=== PATIENT | male | born 1965 | race Caucasian/White ===

== ENCOUNTER → 2018-09-15 | Outpatient (CLI) | payer BC ==
--- NOTE | 2018-09-15 17:23 | US ---
EXAMINATION TYPE: US venous doppler duplex LE RT DATE OF EXAM: 09/15/2018 3:50 PM COMPARISON: NONE CLINICAL HISTORY: M79.89 Swelling In Limb. SIDE PERFORMED: Right TECHNIQUE: The lower extremity deep venous system is examined utilizing real time linear array sonog juan with graded compression, doppler sonography and color-flow sonography. VESSELS IMAGED: External Iliac Vein (EIV) Common Femoral Vein Deep Femoral Vein Greater Saphenous Vein * Femoral Vein Popliteal Vein Small Saphenous Vein * Proximal Calf Veins (* superficial vessels) FINDINGS: Grayscale, color doppler, spectral doppler imaging performed of the deep veins of the lower extremities. There is normal flow, compressibility, vascular waveforms. IMPRESSION: NEGATIVE FOR DVT, RIGHT LOWER EXTREMITY.
== END | disposition home or self-care (01) ==
LOC: RADUSWWP 15:18
PROVIDERS: ATTEND Internal Medicine
DX: M79.89 Other specified soft tissue disorders (principal)

== ENCOUNTER → 2022-04-26 | Outpatient (CLI) | payer BC ==
--- NOTE | 2022-04-27 07:04 | MR ---
EXAMINATION TYPE: MR iac wo/w con DATE OF EXAM: 04/26/2022 COMPARISON: NONE HISTORY: Right side hearing loss. TECHNIQUE: Multiplanar, multisequence images of the brain and brainstem is performed without and with IV contras t, utilizing 13 mL intravenous Gadavist . Acoustic nerve disorder protocol. FINDINGS: Diffusion weighted images demonstrate no evidence of a recent infarct or other diffusion ab normality. Mild ventricular and sulcal prominence. Single tiny 3 to 4 mm T2 hyperintense lesion right frontal lobe axial image 22. Midline structures demonstrate normal morphology. The craniocervical junction appears within normal limits. There is dominant left vertebral artery filling the basilar artery. Moderate mucosal thickeni ng involving ethmoid sinuses bilaterally. Globes are intact. No suspicious fluid signal in the mastoid air cells bilaterally. The vestibulocochlear complexes are symmetric and felt within normal limits. No suspicious enhancing cerebellopontine angle mass is ident ified. IMPRESSION: 1. No suspicious findings seen to account for patient's symptoms of right-sided hearing loss. 2. Mild diffuse cerebral atrophy with bilateral chronic ethmoid sinus disease noted.
== END | disposition home or self-care (01) ==
LOC: RADMRIMAIN 14:19
PROVIDERS: ATTEND Otolaryngology
DX: G31.9 Degenerative disease of nervous system, unspecified (principal)
CPT/HCPCS: 70553; A9585

== ENCOUNTER → 2024-11-05 | Day surgery (SDC) | payer BC ==
[2024-11-03 09:28] VITALS: BMI 33.7
[~2024-11-05] MED LIST: PROPOFOL 10 MG/ML 20 ML VIAL IV ONE
[2024-11-05] MEDS: IV FLUID CONTINUATION 1,000 ML IV ONE (12:05)
[2024-11-05 12:06] VITALS: TEMP 97
[2024-11-05] MEDS: LACTATED RINGERS 1,000 ML IV SCH (12:11)
--- NOTE | 2024-11-05 13:07 | P.PCN ---
Date of Procedure: 11/05/24 Procedure(s) Performed: BRIEF HISTORY: Patient is a 58-year-old pleasant white male scheduled for an elective colonoscopy as a part of painful colon cancer/positive Cologuard. PROCEDURE PERFORMED: Colonoscopy with snare polypectomy. PREOPERATIVE DIAGNOSIS: Screening for colon cancer/positive Cologuard. IV sedation per Anesthesia. PROCEDURE: After informed consent was obtained, the patient, was brought into the endoscopy unit. IV sedation was administered by Anesthesia under continuous monitoring. Digital rectal examination was normal. Initially the Olympus CF-160 flexible video colonoscope was then inserted in the rectum, gradually advanced into the cecum without any difficulty. Careful examination was performed as the scope was gradually being withdrawn. Ileocecal valve and the appendiceal orifice were visualized and appeared normal. Prep was excellent. Mucosa of the cecum, ascending colon, appeared normal. The transverse colon there was a 5 mm polyp that was removed by cold snare polypectomy. Rest of the transverse colon, descending colon, sigmoid colon, and rectum appeared normal. Scattered sigmoid diverticulosis. Retroflexion was performed in the rectum and no lesions were seen. The patient tolerated the procedure well. IMPRESSION: 5 mm transverse colon polyp status post cold snare polypectomy Scattered sigmoid diverticulosis RECOMMENDATIONS: Findings of this examination were discussed with the patient as well as his family. He was advised to follow-up with the biopsy results. If the biopsy reveals adenoma he can colonoscopy in 5 years..
[2024-11-05 13:34] VITALS: BP 137/89; PULSE 73; RESP 14
== END ==
LOC: ORWHC2ENDO 11:13
PROVIDERS: ATTEND Internal Medicine Gastroenterology
DX: D12.3 Benign neoplasm of transverse colon (principal); K57.30 Diverticulosis of large intestine without perforation or abscess without bleeding; K21.9 Gastro-esophageal reflux disease without esophagitis; Z79.899 Other long term (current) drug therapy; Z88.0 Allergy status to penicillin; Z98.890 Other specified postprocedural states
CPT/HCPCS: 88305; 45385; J2704